=== PATIENT | female | born 1990 | race Caucasian/White ===

== ENCOUNTER 2017-07-03 13:20 | Emergency (ER) | payer SELFPAY ==
--- NOTE | 2017-07-03 13:43 | ER Document Report ---
HPI - HPI Pain Level: 5 Context: 26 yo non smoking, non drug, non etoh female was cleaning under the desk at home yesterday, on way back up the low back started hurtning. No radiculopahty or saddle anesthesia. No fever. LMP Jun 05. IUD. No urinary sx. Hx back pain in past similar to this in past. - REPRODUCTIVE Reproductive: DENIES: : - DERM Skin Color: Normal Past Medical History - General Information source: Patient - Social History Smoking Status: Never Smoker Frequency of alcohol use: None Drug Abuse: None Lives with: Spouse/Significant other Family History: CAD, CVA, DM, Hyperlipidemia, Hypertension, Malignancy. denies : Arthritis Neurological Medical History: Reports: Hx Migraine Endocrine Medical History: Reports: Hx Diabetes Mellitus Type 2 - gestational Renal/ Medical History: Reports: Hx Kidney Stones, Hx Ovarian Cysts. Denies: Hx Peritoneal Dialysis Psychiatric Medical History: Reports: Hx Depression - Immunizations Immunizations up to date: Yes Hx Diphtheria, Pertussis, Tetanus Vaccination: Yes Vertical Provider Document - CONSTITUTIONAL Exam Limitations: No Limitations General Appearance: No Apparent Distress - INFECTION CONTROL TRAVEL OUTSIDE OF THE [place] IN LAST 30 DAYS: No - HEENT HEENT: Normocephalic - NECK Neck: Supple - RESPIRATORY Respiratory: Breath Sounds Normal, No Respiratory Distress O2 Sat by Pulse Oximetry: 100 - CARDIOVASCULAR Cardiovascular: Regular Rate, Regular Rhythm - GI/ABDOMEN Gastrointestinal: Abdomen Soft, Abdomen Non-Tender - BACK Back: Normal Inspection - MUSCULOSKELETAL/EXTREMETIES Musculoskeletal/Extremeties: MAEW, FROM, Tender - lumbar paraspinal muscles - NEURO Level of Consciousness: Awake, Alert Motor/Sensory: No Motor Deficit, No Sensory Deficit Deep Tendon Reflexes: 2+ - day ankle and patellar Course - Vital Signs Vital signs: Temp Pulse Resp BP Pulse Ox 98.7 F 98 16 116/74 100 07/03/17 13:28 07/03/17 13:28 07/03/17 13:28 07/03/17 13:28 07/03/17 13:28 Discharge - Discharge Clinical Impression: low back strain Condition: Good Disposition: HOME, SELF-CARE Instructions: Chiropractor, Low Back Pain ([facility]), Muscle Relaxers ([facility]), Muscle Strain ([facility]), Oral Narcotic Medication ([facility]), Warm Packs ([facility]) Additional Instructions: warm compress to er if worsening symptoms do not twist spine at this time, roll like a log Please complete the patient satisfaction survey if you get one, and return it.. If you do not receive a survey, then you can go to the [facility] website, [email or web address] and place your comments about your very good care. Thank you very much. It was a pleasure being your medical provider today. Prescriptions: Hydrocodone Bit/Acetaminophen [Hydrocodon-Acetaminophen 5-325] 1 each PO Q4HP PRN #10 tablet PRN Reason: Ibuprofen [Motrin 800 mg Tablet] 800 mg PO Q8HP PRN #30 tablet PRN Reason: Cyclobenzaprine HCl [Flexeril 10 Mg Tablet] 10 mg PO TIDP PRN #20 tablet PRN Reason:
[2017-07-03] MEDS ORDERED: ONDANSETRON 4 MG TAB.RAPDIS PO ONE (13:47)
[2017-07-03] MEDS ORDERED: HYDROCODONE/ACETAMINOPHEN 5-325 MG TABLET PO ONE (13:47)
[2017-07-03] MEDS ORDERED: IBUPROFEN 800 MG TABLET PO ONE (13:47)
[2017-07-03 14:34] VITALS: BP 107/65
== END 2017-07-03 14:30 | disposition home or self-care (01) ==
LOC: ER 13:20
DX: S39.012A Strain of muscle, fascia and tendon of lower back, initial encounter (principal); X58.XXXA Exposure to other specified factors, initial encounter; Z97.5 Presence of (intrauterine) contraceptive device; Z87.442 Personal history of urinary calculi
CPT/HCPCS: 99283; S0119

== ENCOUNTER 2018-02-21 09:47 | Emergency (ER) | payer SELFPAY ==
[2018-02-21 09:54] VITALS: BP 118/72
[2018-02-21] MEDS ORDERED: KETOROLAC TROMETHAMINE INJ/PF 30 MG/1 ML SDV IM ONE (10:07)
[2018-02-21] MEDS ORDERED: DEXAMETHASONE SOD PHOS INJ 10 MG/1 ML VIAL IM ONE (10:07)
--- NOTE | 2018-02-21 10:12 | ER Document Report ---
HPI - HPI Pain Level: 5 Notes: Patient is a 27-year-old female with no significant past medical history who presents to the ED complaining of lower back pain status post picking up a filing cabinet yesterday. Patient believes that she twisted wrong. Patient states that her pain is worse with truncal movements and for sitting for prolonged periods. Patient states that the pain does not radiate. Patient states that she did have an issue in the past where she strained her back like this previously. 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 She still eating and drinking without difficulties. She is urinating normally and having normal bowel movements. She has not had any injections or procedures to her lower back. Denies any previous history of spinal abscess. No other concerns or complaints at this time. Denies any headache, fever, neck pain, URI, sore throat, chest pain, palpitations, syncope, cough, shortness of breath, wheeze, dyspnea, abdominal pain, nausea/vomiting/diarrhea, urinary retention, dysuria, hematuria, loss of control of bowel or bladder, numbness/tingling, saddle anesthesia, muscle paralysis/weakness, or rash. - ROS Systems Reviewed and Negative: Yes All other systems reviewed and negative - REPRODUCTIVE Reproductive: DENIES: : Past Medical History - Social History Smoking Status: Never Smoker Family History: CAD, CVA, DM, Hyperlipidemia, Hypertension, Malignancy. denies : Arthritis Neurological Medical History: Reports: Hx Migraine Endocrine Medical History: Reports: Hx Diabetes Mellitus Type 2 - gestational Renal/ Medical History: Reports: Hx Kidney Stones, Hx Ovarian Cysts. Denies: Hx Peritoneal Dialysis Psychiatric Medical History: Reports: Hx Depression - Immunizations Immunizations up to date: Yes Hx Diphtheria, Pertussis, Tetanus Vaccination: Yes Vertical Provider Document - CONSTITUTIONAL Agree With Documented VS: Yes Notes: PHYSICAL EXAMINATION: GENERAL: Well-appearing, well-nourished and in no acute distress. LUNGS: Breath sounds clear to auscultation bilaterally and equal. No wheezes rales or rhonchi. HEART: Regular rate and rhythm without murmurs, rubs, gallops. ABDOMEN: Soft, nontender, nondistended abdomen. No guarding, no rebound. No masses appreciated. Normal bowel sounds present. No CVA tenderness bilaterally. No pulsatile mass Musculoskeletal: LE's b/l: FROM to passive/active. Strength 5+/5. No deficits noted. No bony tenderness of extremities. Back: FROM to passive/active. Strength 5+/5. No vertebral point tenderness, stepoffs, or deformities. No other bony tenderness, erythema, swelling, or ecchymosis. SLR negative b/l. + mild tenderness to the L-paraspinal mm b/l. Mild spasming. No SI jt tenderness. No foot drop Extremities: No cyanosis, clubbing, or edema b/l. Peripheral pulses 2+. Capillary refill less than 2 seconds. NEUROLOGICAL: Normal speech, ataxic gait. Normal sensory, motor exams. Reflexes 2+ b/l. PSYCH: Normal mood, normal affect. SKIN: Warm, Dry, normal turgor, no rashes or lesions noted. - INFECTION CONTROL TRAVEL OUTSIDE OF THE [place] IN LAST 30 DAYS: No Course - Re-evaluation Re-evalutation: 02/21/18 10:10 Patient is an afebrile, well-hydrated, 27-year-old female who presents to the ED with acute lower back pain, suspect low back strain at this time. Vitals are acceptable. PE is otherwise unremarkable for any focal neurological deficits. Toradol and decadron given today. Patient has no significant tachycardia, tachypnea, or hypoxia. She is nontoxic-appearing. No other labs or imaging warranted at this time based on H&P. No other red flag symptoms at this time. Low suspicion for any meningitis, fracture, expanding/ruptured AAA, cauda equina syndrome, epidural mass lesion/abscess, herniated disc causing severe spinal stenosis, or other systemic infection at this time. Patient is aware that her condition can change from initial presentation and that she needs monitor symptoms closely for any acute changes. I will send her home with a prescription for baclofen, and naproxen. Conservative measures otherwise for symptoms. Recheck with your PCM in 3-5 days. Consider consult orthopedic/physical therapy. Return to the ED with any worsening/concerning symptoms otherwise as reviewed discharge. Patient is in agreement. - Vital Signs Vital signs: Temp Pulse Resp BP Pulse Ox 97.9 F 78 14 118/72 100 02/21/18 09:53 02/21/18 09:53 02/21/18 09:53 02/21/18 09:53 02/21/18 09:53 Discharge - Discharge Clinical Impression: Low back pain Qualifiers: Chronicity: acute Back pain laterality: bilateral Sciatica presence: without sciatica Qualified Code(s): M54.5 - Low back pain Condition: Stable Disposition: HOME, SELF-CARE Instructions: Low Back Pain ([facility]), Stretching Exercises for the Back ([facility]), Muscle Relaxers ([facility]) Additional Instructions: Rest, Ice, Compression, Elevation Tylenol/ibuprofen as needed Light stretches daily Strength exercises as able Moist heat and massage may help F/u with your PCP in 3-5 days for a recheck Consider consult(s) with Orthopedics/physical therapy for ongoing/worsening symptoms Return to the ED with any worsening symptoms and/or development of fever, headache, chest pain, palpitations, syncope, shortness of breath, trouble breathing, abdominal pain, n/v/d, blood in stool/urine, loss of control of bowel /bladder, urinary retention, muscle weakness/paralysis, saddle anesthesia, numbness/tingling, or other worsening symptoms that are concerning to you. Prescriptions: Baclofen [Baclofen 10 mg Tablet] 5 - 10 mg PO BID PRN #10 tablet PRN Reason: Naproxen 500 mg PO BID PRN #30 tablet PRN Reason: Referrals: [facility] [Provider Group] - Follow up as needed
== END 2018-02-21 10:28 | disposition home or self-care (01) ==
LOC: ER 09:47
DX: M54.5 Low back pain (principal); X50.0XXA Overexertion from strenuous movement or load, initial encounter
CPT/HCPCS: 99283; 96372; J1885; J1100

== ENCOUNTER 2019-07-09 10:24 | Emergency (ER) | payer SELFPAY ==
[2019-07-09] MEDS ORDERED: ACETAMINOPHEN 325 MG TABLET PO ONE (10:57)
[2019-07-09] MEDS ORDERED: IBUPROFEN 600 MG TABLET PO ONE (11:02)
[2019-07-09] MEDS ORDERED: IBUPROFEN 600 MG TABLET ONE (11:04)
--- NOTE | 2019-07-09 11:04 | ER Document Report ---
ED Medical Screen (RME) - General Chief Complaint: Dizziness Stated Complaint: CHILLS,DIZZY,HEADACHE,SORE THROAT Time Seen by Provider: 07/09/19 10:58 Notes: 28-year-old healthy female presents the emergency department with chief complaint of flulike symptoms since 3:30 PM yesterday. Patient states that she developed a severe headache, fever, cough, body aches, and general malaise. Exam: Well-appearing in no acute distress, tachycardia rate 120, lungs clear to auscultation all verdugo I have greeted and performed a rapid initial assessment of this patient. A comprehensive ED assessment and evaluation of the patient, analysis of test results and completion of medical decision making process will be conducted by an additional ED providers. TRAVEL OUTSIDE OF THE [place] IN LAST 30 DAYS: No - Related Data Allergies/Adverse Reactions: pertussis vaccine,fluid [Pertussis Vaccine,Fluid] Allergy (Verified 07/09/19 10:53) Seizures Home Medications: none Past Medical History - Social History Chew tobacco use (# tins/day): No Frequency of alcohol use: None Drug Abuse: None Neurological Medical History: Reports: Hx Migraine Endocrine Medical History: Reports: Hx Diabetes Mellitus Type 2 - gestational Renal/ Medical History: Reports: Hx Kidney Stones, Hx Ovarian Cysts. Denies: Hx Peritoneal Dialysis Psychiatric Medical History: Reports: Hx Depression - Immunizations Immunizations up to date: Yes Hx Diphtheria, Pertussis, Tetanus Vaccination: Yes
[2019-07-09 11:36] LABS: A TYPE INFLUENZA AG NEGATIVE (NEGATIVE); B INFLUENZA AG NEGATIVE (NEGATIVE)
[2019-07-09] MEDS ORDERED: NORMAL SALINE 1000 ML 1,000 ML IV ONE (13:26)
--- NOTE | 2019-07-09 13:29 | ER Document Report ---
ED General - General Chief Complaint: Dizziness Stated Complaint: CHILLS,DIZZY,HEADACHE,SORE THROAT Time Seen by Provider: 07/09/19 10:58 Notes: 28-year-old female presents to the emergency department complaining of cough runny nose sore throat fever and muscle aches. Patient was noted by triage provider to be febrile and tachycardic on presentation. Influenza swab was done which was negative. Patient continues to complain of sore throat diffuse muscle aches. States she just does not feel right. Denies nausea vomiting diarrhea denies abdominal pain. States she had a nonproductive cough. Denies vaginal discharge or bleeding. Denies hematuria or dysuria. TRAVEL OUTSIDE OF THE [place] IN LAST 30 DAYS: No - Related Data Allergies/Adverse Reactions: pertussis vaccine,fluid [Pertussis Vaccine,Fluid] Allergy (Verified 07/09/19 13:33) Seizures Home Medications: none Past Medical History - Social History Smoking Status: Former Smoker Chew tobacco use (# tins/day): No Frequency of alcohol use: None Drug Abuse: None Family History: CAD, CVA, DM, Hyperlipidemia, Hypertension, Malignancy. denies: Arthritis Patient has suicidal ideation: No Patient has homicidal ideation: No Neurological Medical History: Reports: Hx Migraine Endocrine Medical History: Reports: Hx Diabetes Mellitus Type 2 - gestational Renal/ Medical History: Reports: Hx Kidney Stones, Hx Ovarian Cysts. Denies: Hx Peritoneal Dialysis Psychiatric Medical History: Reports: Hx Depression - Immunizations Immunizations up to date: Yes Hx Diphtheria, Pertussis, Tetanus Vaccination: Yes Review of Systems - Review of Systems Constitutional: Chills, Fever EENT: Nose congestion, Throat pain Cardiovascular: denies: Dyspnea Respiratory: Cough. denies: Short of breath Gastrointestinal: denies: Abdominal pain, Diarrhea, Nausea, Vomiting Genitourinary: denies: Dysuria, Hematuria Skin: denies: Rash Neurological/Psychological: denies: Headaches -: Yes All other systems reviewed and negative Physical Exam - Vital signs Vitals: Temp Pulse Resp BP Pulse Ox 100.7 F H 133 H 20 140/82 H 100 07/09/19 10:51 07/09/19 10:51 07/09/19 10:51 07/09/19 10:51 07/09/19 10:51 - Notes Notes: GENERAL_APPEARANCE: well_nourished, alert, cooperative, no_acute_distress, no_obvious_discomfort. VITALS: reviewed, see vital signs table. HEAD: no_swelling\tenderness on the head. EYES: PERRL, EOMI, conjunctiva_clear. NOSE: Clear_nasal_discharge. Turbinate inflammation MOUTH: (-)decreased moisture. THROAT: Mild_tonsilar_inflammation, no exudates, no_airway_obstruction. no_lymphadenopathy NECK: supple, no_neck_tenderness, (-)thyromegaly. BACK: no_back_tenderness. CHEST_WALL: no_chest_tenderness. LUNGS: no_wheezing, no_rales, no_rhonchi, (-)accessory muscle use, good air exchange bilateral. HEART: normal_rate, normal_rhythm, normal_S1, normal_S2, (-)S3, (-)S4, no_murmur, no_rub. ABDOMEN: normal_BS, soft, no_abd_tenderness, (-)guarding, (-)rebound, no_organomegaly, no_abd_masses. EXTREMITIES: good pulses in all_extremities, no_swelling\tenderness in the extremities, no_edema. SKIN: warm, dry, good_color, no_rash. MENTAL_STATUS: speech_clear, oriented_X_3, normal_affect, responds_appro priately to questions. NEURO: Neg Motor or Sensory Deficits on exam, CN 2-12 intact, DTR 2+ symmetric x 4, No cerbellar signs Course - Re-evaluation Re-evalutation: 07/09/19 13:29 28-year-old female arrives febrile tachycardic. Influenza swab was negative. We will give the patient a liter of IV fluid and check some generalized labs. This appears to be upper respiratory nature. 07/09/19 15:53 Patient's heart rate is come down after liter of IV fluids and antipyretics. Swabs are negative for flu strep and mono. Blood work is fairly reassuring chest x-ray is negative urine is negative. This is likely viral illness. The patient looks much better after fluids and antipyretics. Repeat exam is reassuring abdomen soft and supple no rebound or guarding. No meningismus no purpura no petechiae good mentation. Patient is comfortable going home spoke with her about supportive care if she does not feel better in 24 to 48 hours return to be rechecked. - Vital Signs Vital signs: Temp Pulse Resp BP Pulse Ox 98.0 F 88 20 92/47 L 96 07/09/19 13:31 07/09/19 13:31 07/09/19 10:51 07/09/19 13:31 07/09/19 13:31 - Laboratory Result Diagrams: 07/09/19 14:40 07/09/19 13:50 Laboratory results interpreted by me: 07/09/19 07/09/19 07/09/19 13:50 14:40 14:51 WBC 12.2 H Lymph % (Auto) 12.5 L Absolute Neuts (auto) 10.1 H Seg Neutrophils % 82.8 H AST 37 H Total Protein 8.5 H Urine Ketones 20 H Urine Blood SMALL H - Diagnostic Test Radiology reviewed: Reports reviewed Radiology results interpreted by me: 07/09/19 15:53 Chest X-Ray 07/09/19 13:27 IMPRESSION: NO SIGNIFICANT RADIOGRAPHIC FINDING IN THE CHEST. Discharge - Discharge Clinical Impression: Viral syndrome Condition: Good Disposition: HOME, SELF-CARE Instructions: Viral Syndrome ([facility]), Fever ([facility])
--- NOTE | 2019-07-09 13:59 | RADIOLOGY REPORT (SQ) ---
EXAM DESCRIPTION: CHEST 2 VIEWS COMPLETED DATE/TIME: 07/09/2019 1:43 pm REASON FOR STUDY: fever COMPARISON: 01/28/2016 TECHNIQUE: Frontal and lateral radiographic views of the chest acquired. NUMBER OF VIEWS: Two view. LIMITATIONS: None. FINDINGS: LUNGS AND PLEURA: No opacities, masses or pneumothorax. No pleural effusion. MEDIASTINUM AND HILAR STRUCTURES: No masses or contour abnormalities. HEART AND VASCULAR STRUCTURES: Heart normal size. No evidence for failure. BONES: No acute findings. HARDWARE: None in the chest. OTHER: No other significant finding. IMPRESSION: NO SIGNIFICANT RADIOGRAPHIC FINDING IN THE CHEST. TECHNICAL DOCUMENTATION: JOB ID: [id number] [employer]- All Rights Reserved Reading location - IP/workstation name: [email or web address]
[2019-07-09 14:30] LABS: ALBUMIN 4.6 g/dL (3.5-5.0); ALKALINE PHOSPHATASE 68 U/L (38-126); ANION GAP 13 (5-19); ASPARTATE AMINO TRANSFERASE 37 U/L (14-36); BILIRUBIN,DIRECT 0.2 mg/dL (0.0-0.4); BILIRUBIN,TOTAL 0.7 mg/dL (0.2-1.3); BLOOD UREA NITROGEN 8 mg/dL (7-20); CALCIUM 9.3 mg/dL (8.4-10.2); CARBON DIOXIDE 23 mmol/L (22-30); CHLORIDE 101 mmol/L (98-107); GLUCOSE 89 mg/dL (75-110); POTASSIUM 4.1 mmol/L (3.6-5.0); TOTAL PROTEIN 8.5 g/dL (6.3-8.2)
[2019-07-09 14:51] LABS: ABSOLUTE LYMPHOCYTES (AUTO) 1.5 10^3/uL (0.5-4.7); ABSOLUTE MONOCYTES (AUTO) 0.6 10^3/uL (0.1-1.4); ABSOLUTE NEUT (AUTO) 10.1 10^3/uL (1.7-8.2); BASOPHILS % (AUTO) 0.2 % (0-2); HEMATOCRIT 37.7 % (36.0-47.0); HEMOGLOBIN 12.4 g/dL (12.0-15.5); LYMPHOCYTES % (AUTO) 12.5 % (13-45); MEAN CORPUSCULAR HEMOGLOBIN 32.1 pg (27.0-33.4); MEAN CORPUSCULAR VOLUME 97 fl (80-97); MONOCYTES % (AUTO) 4.5 % (3-13); PLATELET COUNT 169 10^3/uL (150-450); RED BLOOD COUNT 3.87 10^6/uL (3.72-5.28); RED CELL DISTRIBUTION WIDTH 12.7 % (11.5-14.0); SEGMENTED NEUTROPHILS % (AUTO) 82.8 % (42-78); TOTAL CELLS COUNTED % (AUTO) 100 %; WHITE BLOOD COUNT 12.2 10^3/uL (4.0-10.5)
[2019-07-09 15:14] LABS: APPEARANCE,URINE SLIGHTLY-CLOUDY; BILIRUBIN,URINE NEGATIVE (NEGATIVE); COLOR,URINE YELLOW; GLUCOSE, URINE NEGATIVE (NEGATIVE); KETONES,URINE 20 mg/dL (NEGATIVE); LEUKOCYTE ESTERASE,URINE NEGATIVE (NEGATIVE); NITRITE,URINE NEGATIVE (NEGATIVE); PROTEIN,URINE NEGATIVE (NEGATIVE); URINE SPECIFIC GRAVITY 1.014; UROBILINOGEN,URINE NEGATIVE mg/dL (<2.0)
[2019-07-09 16:12] VITALS: BP 116/59
== END 2019-07-09 16:15 | disposition home or self-care (01) ==
LOC: ER 10:24
DX: B34.9 Viral infection, unspecified (principal); R42 Dizziness and giddiness; R51 Headache; R68.83 Chills (without fever); R09.81 Nasal congestion; Z87.442 Personal history of urinary calculi
CPT/HCPCS: 99284; 96360; 36415; 87070; 87880; 85025; 86308; 80053; 81001; 87804; 71046; J7030

== ENCOUNTER 2019-07-13 19:01 | Emergency (ER) | payer SELFPAY ==
--- NOTE | 2019-07-13 20:00 | ER Document Report ---
ED Medical Screen (RME) - General Chief Complaint: Congestion Stated Complaint: CONJESTION/COUGH/FEVER Time Seen by Provider: 07/13/19 19:56 Mode of Arrival: Ambulatory Information source: Patient Notes: 28-year-old female presented to ED for complaint of being sick since Tuesday. She statement into the emergency room on Tuesday was diagnosed with a viral illness. Tuesday she was running a fever of 102 she went back to work on Tuesday she had a fever of over 100 Tuesday evening then she went back to work she states her cough and chest congestion is gotten worse since then. She states her temperature has not been over 100 yesterday or today. Patient states she has a cough congestion chest discomfort and hard to breathe at times. Former smoker but does not smoke at this time she denies any alcohol or any street drugs. 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 I have greeted and performed a rapid initial assessment of this patient. A comprehensive ED assessment and evaluation of the patient, analysis of test results and completion of medical decision making process will be conducted by an additional ED providers. TRAVEL OUTSIDE OF THE [place] IN LAST 30 DAYS: No - Related Data Allergies/Adverse Reactions: pertussis vaccine,fluid [Pertussis Vaccine,Fluid] Allergy (Verified 07/09/19 13:33) Seizures Past Medical History - Social History Chew tobacco use (# tins/day): No Frequency of alcohol use: None Drug Abuse: None Neurological Medical History: Reports: Hx Migraine Endocrine Medical History: Reports: Hx Diabetes Mellitus Type 2 - gestational Renal/ Medical History: Reports: Hx Kidney Stones, Hx Ovarian Cysts. Denies: Hx Peritoneal Dialysis Psychiatric Medical History: Reports: Hx Depression - Immunizations Immunizations up to date: Yes Hx Diphtheria, Pertussis, Tetanus Vaccination: Yes Physical Exam - Vital signs Vitals: Temp Pulse Resp BP Pulse Ox 98.5 F 81 18 124/72 99 07/13/19 19:34 07/13/19 19:34 07/13/19 19:34 07/13/19 19:34 07/13/19 19:34 Course - Vital Signs Vital signs: Temp Pulse Resp BP Pulse Ox 98.5 F 81 18 124/72 99 07/13/19 19:34 07/13/19 19:34 07/13/19 19:34 07/13/19 19:34 07/13/19 19:34
--- NOTE | 2019-07-13 20:35 | ER Document Report ---
HPI - HPI Patient complains to provider of: Cough sore throat fever Time Seen by Provider: 07/13/19 19:56 Onset: Other Pain Level: 4 Context: 28-year-old female presents emergency department with complaints of cough sore throat fever for approximately 1 week. 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 Reports she has had a fever up to 102 for the past 3 days. Reports she is cough feels like at times hard to take a deep breath. Denies vomiting diarrhea. Patient reports she has been coughing up some white mucus. Associated Symptoms: Productive cough, Fever Exacerbated by: Denies Relieved by: Denies Similar symptoms previously: Yes Recently seen / treated by doctor: Yes - REPRODUCTIVE LMP: Reproductive: DENIES: : Past Medical History - General Information source: Patient - Social History Smoking Status: Former Smoker Chew tobacco use (# tins/day): No Frequency of alcohol use: None Drug Abuse: None Occupation: daycare Family History: CAD, CVA, DM, Hyperlipidemia, Hypertension, Malignancy. denies: Arthritis Patient has suicidal ideation: No Patient has homicidal ideation: No Neurological Medical History: Reports: Hx Migraine Endocrine Medical History: Reports: Hx Diabetes Mellitus Type 2 - gestational Renal/ Medical History: Reports: Hx Kidney Stones, Hx Ovarian Cysts. Denies: Hx Peritoneal Dialysis Psychiatric Medical History: Reports: Hx Depression Surgical Hx: Negative - Immunizations Immunizations up to date: Yes Hx Diphtheria, Pertussis, Tetanus Vaccination: Yes Vertical Provider Document - CONSTITUTIONAL Agree With Documented VS: Yes Exam Limitations: No Limitations General Appearance: WD/WN, No Apparent Distress - INFECTION CONTROL TRAVEL OUTSIDE OF THE [place] IN LAST 30 DAYS: No - HEENT HEENT: Atraumatic, Normocephalic. negative: Conjuctival Injection, Pharyngeal Exudate, Pharyngeal Erythema - NECK Neck: Normal Inspection, Supple. negative: Lymphadenopathy-Left, Lymphadenopathy-Right - RESPIRATORY Respiratory: Breath Sounds Normal, No Respiratory Distress. negative: Rhonchi, Wheezing - CARDIOVASCULAR Cardiovascular: Regular Rate, Regular Rhythm - GI/ABDOMEN Gastrointestinal: Abdomen Soft, Abdomen Non-Tender - MUSCULOSKELETAL/EXTREMETIES Musculoskeletal/Extremeties: MAEW, FROM, Non-Tender - NEURO Level of Consciousness: Awake, Alert, Appropriate Motor/Sensory: No Motor Deficit - DERM Integumentary: Warm, Dry Course - Re-evaluation Re-evalutation: 07/13/19 20:55 36-year-old female presents to the emergency department with complaints of cough fever sore throat for the past week. She was evaluated on Tuesday and told she had a viral syndrome chest x-ray was negative at that time. Chest x-ray is suspicious for early pneumonia today. We will treat with Zithromax. Patient reports she is had that medication before. She was also instructed to monitor her breathing if she has any trouble breathing increased fever return to the emergency department. She verbalized understanding he will instructions. Chest X-Ray 07/13/19 20:00 IMPRESSION: 1. Subtle left lower lobe groundglass density, suspicious for early/mild focal pneumonia. - Vital Signs Vital signs: Temp Pulse Resp BP Pulse Ox 98.5 F 81 18 124/72 99 07/13/19 19:34 07/13/19 19:34 07/13/19 19:34 07/13/19 19:34 07/13/19 19:34 - Diagnostic Test Radiology reviewed: Image reviewed, Reports reviewed Discharge - Discharge Clinical Impression: Pneumonia Qualifiers: Pneumonia type: due to unspecified organism Laterality: left Lung location: lower lobe of lung Qualified Code(s): J18.1 - Lobar pneumonia, unspecified organism Condition: Stable Disposition: HOME, SELF-CARE Instructions: Acetaminophen, Azithromycin ([facility]), Fever ([facility]), Pneumonia ([facility]) Additional Instructions: *You have been evaluated for cough, fever, pneumonia *Increase fluid intake as discussed *Take medication as prescribed *Monitor your temperature, take Tylenol as indicated *Follow up with a primary care provider within 5 days for recheck *Return to ED for worsening condition, changes, needs, trouble breathing, concerns Prescriptions: Azithromycin [Zithromax 250 mg Tablet] 250 mg PO DAILY #5 tablet
[2019-07-13 20:37] VITALS: BP 117/70
--- NOTE | 2019-07-13 20:37 | RADIOLOGY REPORT (SQ) ---
EXAM DESCRIPTION: [facility]: XR CHEST 2 VIEWS Views: 2 CLINICAL HISTORY: 28 years Female, cough congestion COMPARISON: 07/09/2019 FINDINGS: There is a very subtle groundglass density in the left lower lobe. Lungs are otherwise clear. No pneumothorax or pleural effusion. Cardiomediastinal silhouette is within normal limits. Bony structures are unremarkable for age. IMPRESSION: 1. Subtle left lower lobe groundglass density, suspicious for early/mild focal pneumonia.
[2019-07-13] MEDS ORDERED: AZITHROMYCIN 250 MG TABLET PO ONE (20:41)
== END 2019-07-13 21:06 | disposition home or self-care (01) ==
LOC: ER 19:01
DX: J18.1 Lobar pneumonia, unspecified organism (principal); R05 Cough; J02.9 Acute pharyngitis, unspecified; R50.9 Fever, unspecified; Z87.891 Personal history of nicotine dependence
CPT/HCPCS: 71046; 99283